=== PATIENT | male | born 1970 | race African-American/Black ===

== ENCOUNTER 2018-06-18 10:23 | Inpatient (IN) | payer OTHER ==
[2018-06-18 10:34] VITALS: BMI 26.4
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
[2018-06-18] MEDS ORDERED: MAGNESIUM HYDROX 2400MG/30ML ORAL SUSPENSION 30 ML CUP PO PRN (14:39)
[2018-06-18] MEDS ORDERED: P-EPHED 60MG/TRIPROLIDI 2.5MG TABLET PO PRN (14:39)
[2018-06-18] MEDS ORDERED: NICOTINE POLACRILEX 2 MG GUM BUC PRN (14:39)
[2018-06-18] MEDS ORDERED: hydrOXYzine PAMOATE 50 MG CAPSULE (FP) PO PRN (14:39)
[2018-06-18] MEDS ORDERED: MAG HYDROX/AL HYDROX/SIMETH 30 ML UNIT-DOSE CUP PO PRN (14:39)
[2018-06-18] MEDS ORDERED: MAGNESIUM CITRATE 300 ML BOTTLE PO PRN (14:39)
[2018-06-18] MEDS ORDERED: LOPERAMIDE HCL 2 MG CAPSULE PO PRN (14:39)
[2018-06-18] MEDS ORDERED: MENTHOL/PHENOL 1 EACH UD MM PRN (14:39)
[2018-06-18] MEDS ORDERED: guaiFENesin/D-METHORPHAN HB 10 ML UNIT-DOSE CUPS PO PRN (14:39)
[2018-06-18] MEDS ORDERED: ACETAMINOPHEN 325 MG TABLET (FP) PO PRN (14:39)
[2018-06-18] MEDS ORDERED: ALBUTEROL SO4 8 GM HFA INHALER IH PRN (14:41)
[2018-06-18] MEDS: NICOTINE 21 MG/24 HOURS TOPICAL PATCH TD SCH (16:44)
[2018-06-18] MEDS: THIAMINE HCL 100 MG TABLET (FP) PO SCH (21:36)
[2018-06-19] MEDS: NICOTINE 21 MG/24 HOURS TOPICAL PATCH TD SCH (10:21)
[2018-06-19] MEDS: PRENATAL VITAMINS W/ FOLIC ACID TABLET (FP) PO SCH (10:21)
[2018-06-19 10:26] LABS: ALK PHOS 73 U/L (45-117); ANION GAP 5 MMOL/L (8-16); BILIRUBIN,TOTAL 0.2 mg/dL (0.2-1); BLOOD UREA NITROGEN 22 mg/dL (7-18); CALCIUM 8.7 mg/dL (8.5-10.1); CHLORIDE 109 mmol/L (98-107); CO2 30 mmol/L (21-32); GLUCOSE,RANDOM 89 mg/dL (74-106); POTASSIUM 4.3 mmol/L (3.5-5.1); SGOT/AST 22 U/L (15-37); SGPT/ALT 35 U/L (13-61); SODIUM 143 mmol/L (136-145); TOT PROT 7.3 g/dl (6.4-8.2)
[2018-06-19 10:51] LABS: BASO % 1.1 % (0-2.0); EOS % 4.9 % (0-4.5); HEMATOCRIT 39.3 % (35.4-49); HEMOGLOBIN 13.3 GM/dL (11.7-16.9); LYMPH % 32.2 % (8-40); MCH 31.3 pg (25.7-33.7); MEAN CELL VOLUME 92.2 fl (80-96); MEAN PLT VOLUME 9.8 fl (7.5-11.1); MONO % 11.1 % (3.8-10.2); NEUT % 50.7 % (42.8-82.8); PLATELET COUNT 269 K/MM3 (134-434); RBC 4.26 M/mm3 (4.00-5.60); RDW 14.1 % (11.9-15.9); WHITE BLOOD COUNT 6.4 K/mm3 (4.0-10.0)
[2018-06-19 11:28] LABS: URINE APPEARANCE CLEAR; URINE BILIRUBIN NEGATIVE (<2.0 mg/dL); URINE COLOR LTYELLOW; URINE GLUCOSE (UA) NEGATIVE (NEGATIVE); URINE KETONE NEGATIVE (NEGATIVE); URINE LEUK ESTERASE TRACE (NEGATIVE); URINE NITRITE NEGATIVE (NEGATIVE); URINE PROTEIN NEGATIVE (NEGATIVE); URINE UROBILINOGEN NEGATIVE mg/dL (0.2-1.0)
[2018-06-19 11:31] LABS: URINE MUCUS RARE
[2018-06-19] MEDS ORDERED: PNEUMOCOCCAL 23 VACCINE 0.5 ML VIAL IM ONE (12:00)
[2018-06-19] MEDS ORDERED: FLU VACCINE QUAD 60 MCG/0.5 ML (MDV 18-19) IM ONE (12:00)
[2018-06-19] MEDS ORDERED: PNEUMOC 13-VAL CONJ-DIP CRM/PF 0.5 ML DISP.SYRIN IM ONE (12:00)
[2018-06-19] MEDS: THIAMINE HCL 100 MG TABLET (FP) PO SCH (21:46)
[2018-06-20] MEDS: PRENATAL VITAMINS W/ FOLIC ACID TABLET (FP) PO SCH (10:19)
[2018-06-20] MEDS: NICOTINE 21 MG/24 HOURS TOPICAL PATCH TD SCH (10:20)
[2018-06-20] MEDS: THIAMINE HCL 100 MG TABLET (FP) PO SCH (21:33)
[2018-06-21] MEDS: NICOTINE 21 MG/24 HOURS TOPICAL PATCH TD SCH (10:15)
[2018-06-21] MEDS: PRENATAL VITAMINS W/ FOLIC ACID TABLET (FP) PO SCH (10:15)
[2018-06-21] MEDS: IBUPROFEN 400 MG TABLET (FP) PO PRN ×2 (11:54→21:52)
[2018-06-21] MEDS: THIAMINE HCL 100 MG TABLET (FP) PO SCH (21:36)
[2018-06-22] MEDS: MELATONIN 5 MG TABLETS PO PRN ×2 (00:03→23:47)
[2018-06-22] MEDS: NICOTINE 21 MG/24 HOURS TOPICAL PATCH TD SCH (10:15)
[2018-06-22] MEDS: PRENATAL VITAMINS W/ FOLIC ACID TABLET (FP) PO SCH (10:16)
[2018-06-22] MEDS: IBUPROFEN 400 MG TABLET (FP) PO PRN (10:16)
[2018-06-22] MEDS: THIAMINE HCL 100 MG TABLET (FP) PO SCH (23:25)
[2018-06-23] MEDS: IBUPROFEN 400 MG TABLET (FP) PO PRN ×2 (06:32→16:40)
[2018-06-23] MEDS: PRENATAL VITAMINS W/ FOLIC ACID TABLET (FP) PO SCH (10:33)
[2018-06-23] MEDS: NICOTINE 21 MG/24 HOURS TOPICAL PATCH TD SCH (10:33)
[2018-06-23] MEDS: THIAMINE HCL 100 MG TABLET (FP) PO SCH (21:23)
[2018-06-23] MEDS: MELATONIN 5 MG TABLETS PO PRN (21:23)
[2018-06-24 06:56] VITALS: BP 126/94; PULSE 67; TEMP 98
--- NOTE | 2018-06-24 10:12 | PN ---
[facility] Progress Note Note: REHAB DISCHARGE NOTE; PT WAS ADMITTED TO REHAB ON 06/18/18 NEEDING REHAB FROM ALCOHOL,COCAINE AND K2. PT REPORTS HE WANTS TO SIGN OUT TO GET BACK TO WORK/HAS A LOT TO DO. REPORTS HE WANTS TO GO TO [facility] TO GET HIS BENEFIT CARD/PHONE AND REINSTATE. PT APPEARS IN A LIGHT TO LEAVE. PT WAS ENCOURAGE TO GIVE HIMSELF A CHANCE TO TREATMENT BUT DECLINED ALL EFFORTS PRESENTED. HOWEVER, PT IS ALERT O X 3. IN NO ACUTE DISTRESS. PT REPORTS HE HAS NO PCP AND ABOUT TO SET THAT UP AFTER LEAVING HERE. PT REPORTS HE IS GOING TO FOLLOW UP WITH CD AFTERCARE AT [facility]. SUGGESTED TO PT TO REGISTER HIMSELF IN ONE OF [facility] NEAR HIM FOR MEDICAL MANAGEMENT. PT MET WITH HER COUNSELOR, GIRISH MICHAEL. Vital Signs - 24 hr 06/24/18 06/24/18 06/24/18 00:30 03:30 06:55 Temperature 98.0 F Pulse Rate 67 Respiratory 18 18 18 Rate Blood Pressure 126/94 Laboratory Tests 06/18/18 06/19/18 06/19/18 22:30 06:00 06:00 WBC 6.4 RBC 4.26 Hgb 13.3 Hct 39.3 MCV 92.2 MCH 31.3 MCHC 34.0 RDW 14.1 Plt Count 269 MPV 9.8 Absolute Neuts (auto) 3.2 Neutrophils % 50.7 Lymphocytes % 32.2 Monocytes % 11.1 H Eosinophils % 4.9 H Basophils % 1.1 Nucleated RBC % 0 Sodium 143 Potassium 4.3 Chloride 109 H Carbon Dioxide 30 Anion Gap 5 L BUN 22 H Creatinine 1.0 Creat Clearance w eGFR > 60 Random Glucose 89 Calcium 8.7 Total Bilirubin 0.2 AST 22 ALT 35 Alkaline Phosphatase 73 Total Protein 7.3 Albumin 4.0 Urine Color Ltyellow Urine Appearance Clear Urine pH 7.0 Ur Specific [place] 1.025 Urine Protein Negative Urine Glucose (UA) Negative Urine Ketones Negative Urine Blood Negative Urine Nitrite Negative Urine Bilirubin Negative Urine Urobilinogen Negative Ur Leukocyte Esterase Trace Urine WBC (Auto) 10 Urine RBC (Auto) 4 Urine Mucus Rare RPR Titer Hep C Ab Diagnostic 06/19/18 06/19/18 06:00 06:00 WBC RBC Hgb Hct MCV MCH MCHC RDW Plt Count MPV Absolute Neuts (auto) Neutrophils % Lymphocytes % Monocytes % Eosinophils % Basophils % Nucleated RBC % Sodium Potassium Chloride Carbon Dioxide Anion Gap BUN Creatinine Creat Clearance w eGFR Random Glucose Calcium Total Bilirubin AST ALT Alkaline Phosphatase Total Protein Albumin Urine Color Urine Appearance Urine pH Ur Specific [place] Urine Protein Urine Glucose (UA) Urine Ketones Urine Blood Urine Nitrite Urine Bilirubin Urine Urobilinogen Ur Leukocyte Esterase Urine WBC (Auto) Urine RBC (Auto) Urine Mucus RPR Titer Nonreactive Hep C Ab Diagnostic <0.1 NAD MEDICALLY STABLE PLAN:PT SIGNED OUT AMA FOLLOW UP AT [facility] AFTER DISCHARGE.
[2018-06-24] MEDS: NICOTINE 21 MG/24 HOURS TOPICAL PATCH TD SCH (10:30)
[2018-06-24] MEDS: PRENATAL VITAMINS W/ FOLIC ACID TABLET (FP) PO SCH (10:30)
== END 2018-06-24 10:40 | disposition left against medical advice (07) | DRG 770 ==
LOC: YASAS 10:23 → Y5N 14:43
PROVIDERS: ADMIT Neuromusculoskeletal Medicine & OMM; ATTEND Neuromusculoskeletal Medicine & OMM
PROC: HZ42ZZZ Group Counseling for Substance Abuse Treatment, Cognitive-Behavioral (ICD-10-PCS; principal; 2018-06-18)
DX: F10.20 Alcohol dependence, uncomplicated (principal); F14.20 Cocaine dependence, uncomplicated; F12.20 Cannabis dependence, uncomplicated; F17.210 Nicotine dependence, cigarettes, uncomplicated; J45.909 Unspecified asthma, uncomplicated; B18.2 Chronic viral hepatitis C; Z87.438 Personal history of other diseases of male genital organs; Z91.013 Allergy to seafood
CPT/HCPCS: 36415; 80053; 81003; 81015; 85025; 86593; 86803; 90688; G0008

== ENCOUNTER 2018-08-27 08:31 | Inpatient (IN) | payer OTHER ==
[2018-08-27 09:20] VITALS: BMI 25.6
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
[2018-08-27] MEDS ORDERED: ACETAMINOPHEN 325 MG TABLET (FP) PO PRN ×2 (12:05)
[2018-08-27] MEDS ORDERED: NICOTINE POLACRILEX 2 MG GUM BUC PRN (12:05)
[2018-08-27] MEDS ORDERED: MAGNESIUM CITRATE 300 ML BOTTLE PO PRN (12:05)
[2018-08-27] MEDS ORDERED: hydrOXYzine PAMOATE 25 MG CAPSULE (FP) PO PRN (12:05)
[2018-08-27] MEDS ORDERED: BISMUTH SUBSALICYLATE 262 MG/15 ML BTL PO PRN (12:05)
[2018-08-27] MEDS ORDERED: MAG HYDROX/AL HYDROX/SIMETH 30 ML UNIT-DOSE CUP PO PRN (12:05)
[2018-08-27] MEDS ORDERED: IBUPROFEN 400 MG TABLET (FP) PO PRN (12:05)
[2018-08-27] MEDS ORDERED: chlordiazePOXIDE HCL 25 MG CAPSULE PO PRN (12:05)
[2018-08-27] MEDS ORDERED: METHOCARBAMOL 500 MG TABLET PO PRN (12:05)
[2018-08-27] MEDS ORDERED: MENTHOL/PHENOL 1 EACH UD MM PRN (12:05)
[2018-08-27] MEDS ORDERED: MAGNESIUM HYDROX 2400MG/30ML ORAL SUSPENSION 30 ML CUP PO PRN (12:05)
[2018-08-27] MEDS: NICOTINE 21 MG/24 HOURS TOPICAL PATCH TD SCH (13:05)
[2018-08-27 16:50] LABS: EPI CELLS 9.2 /HPF (0-5/HPF); PH,URINE 5.5 (5.0-8.0); URINE APPEARANCE CLEAR; URINE BACTERIA 1.5 /hpf (NEGATIVE); URINE BILIRUBIN NEGATIVE (NEGATIVE); URINE CASTS 33 /hpf (0-8); URINE COLOR YELLOW; URINE GLUCOSE (UA) NEGATIVE (NEGATIVE); URINE KETONE NEGATIVE (NEGATIVE); URINE LEUK ESTERASE 2+ (NEGATIVE); URINE NITRITE NEGATIVE (NEGATIVE); URINE PROTEIN NEGATIVE (NEGATIVE); URINE RBC 3 /hpf (0-4); URINE UROBILINOGEN 0.2 mg/dL (0.2-1.0); URINE WBC 62 /hpf (0-5)
[2018-08-27 17:06] LABS: HEMATOCRIT 41.1 % (35.4-49); HEMOGLOBIN 13.7 GM/dL (11.7-16.9); MCH 30.6 pg (25.7-33.7); MCHC 33.3 g/dl (32.0-35.9); MEAN CELL VOLUME 91.9 fl (80-96); MEAN PLT VOLUME 8.8 fl (7.5-11.1); PLATELET COUNT 363 K/MM3 (134-434); RBC 4.47 M/mm3 (4.00-5.60); RDW 14.4 % (11.9-15.9); WHITE BLOOD COUNT 4.8 K/mm3 (4.0-10.0)
[2018-08-27 17:14] LABS: ALBUMIN 3.5 g/dl (3.4-5.0); ALK PHOS 75 U/L (45-117); ANION GAP 4 MMOL/L (8-16); BILIRUBIN,TOTAL 0.3 mg/dL (0.2-1); BLOOD UREA NITROGEN 17 mg/dL (7-18); CHLORIDE 106 mmol/L (98-107); CO2 29 mmol/L (21-32); CREATININE 1.1 mg/dL (0.55-1.3); GLUCOSE,RANDOM 76 mg/dL (74-106); POTASSIUM 4.3 mmol/L (3.5-5.1); SGOT/AST 29 U/L (15-37); SGPT/ALT 39 U/L (13-61); SODIUM 139 mmol/L (136-145); TOT PROT 7.6 g/dl (6.4-8.2)
[2018-08-27] MEDS: chlordiazePOXIDE HCL 25 MG CAPSULE PO SCH ×2 (17:51→22:17)
[2018-08-27] MEDS: THIAMINE HCL 100 MG TABLET (FP) PO SCH (22:17)
[2018-08-27] MEDS: MELATONIN 5 MG TABLETS PO PRN (22:18)
[2018-08-28] MEDS: chlordiazePOXIDE HCL 25 MG CAPSULE PO SCH ×4 (05:37→22:44)
[2018-08-28] MEDS: NICOTINE 21 MG/24 HOURS TOPICAL PATCH TD SCH (10:20)
[2018-08-28] MEDS: PRENATAL VITAMINS W/ FOLIC ACID TABLET (FP) PO SCH (10:20)
[2018-08-28] MEDS ORDERED: PT OWN MED DRAWER 7, Y5N ONE (10:39)
[2018-08-28] MEDS: LIDOCAINE 5% TOPICAL PATCH TP SCH (16:03)
--- NOTE | 2018-08-28 17:19 | PN ---
S CIWA - CIWA Score Nausea/Vomitin-No Nausea/No Vomiting Muscle Tremors: None Anxiety: 3 Agitation: 1-Slight > Activity Paroxysmal Sweats: 2 Orientation: 0-Oriented Tacttile Disturbances: 2-Mild Itch/Numbness/Burn Auditory Disturbances: 1-Very Mild Visual Disturbances: 3-Moderate Sensitivity Headache: 0-None Present CIWA-Ar Total Score: 12 [facility] Progress Note (SOAP) Subjective: Body Aches, Anxious, Sweating. Objective: PATIENT A & O X 2 (UNCERTAIN ABOUT CURRENT DAY / DATE). PATIENT OBSERVED AMBULATING ON UNIT. IN NO ACUTE DISTRESS. 08/28/18 17:17 Vital Signs Temperature 97.5 F L 08/28/18 13:23 Pulse Rate 96 H 08/28/18 13:23 Respiratory Rate 18 08/28/18 13:23 Blood Pressure 137/86 08/28/18 13:23 O2 Sat by Pulse Oximetry (%) Laboratory Tests 08/27/18 08/27/18 08/27/18 12:10 12:10 12:10 WBC 4.8 RBC 4.47 Hgb 13.7 Hct 41.1 MCV 91.9 MCH 30.6 MCHC 33.3 RDW 14.4 Plt Count 363 D MPV 8.8 D Sodium 139 Potassium 4.3 Chloride 106 Carbon Dioxide 29 Anion Gap 4 L BUN 17 Creatinine 1.1 Creat Clearance w eGFR 72.39 Random Glucose 76 Calcium 9.0 Total Bilirubin 0.3 AST 29 ALT 39 Alkaline Phosphatase 75 Total Protein 7.6 Albumin 3.5 Urine Color Urine Appearance Urine pH Ur Specific [place] Urine Protein Urine Glucose (UA) Urine Ketones Urine Blood Urine Nitrite Urine Bilirubin Urine Urobilinogen Ur Leukocyte Esterase Urine WBC (Auto) Urine RBC (Auto) Urine Casts (Auto) U Epithel Cells (Auto) U Sm Round Cell (Auto) Urine Bacteria (Auto) RPR Titer Nonreactive 08/27/18 15:17 WBC RBC Hgb Hct MCV MCH MCHC RDW Plt Count MPV Sodium Potassium Chloride Carbon Dioxide Anion Gap BUN Creatinine Creat Clearance w eGFR Random Glucose Calcium Total Bilirubin AST ALT Alkaline Phosphatase Total Protein Albumin Urine Color Yellow Urine Appearance Clear Urine pH 5.5 D Ur Specific [place] 1.028 Urine Protein Negative Urine Glucose (UA) Negative Urine Ketones Negative Urine Blood Negative Urine Nitrite Negative Urine Bilirubin Negative Urine Urobilinogen 0.2 Ur Leukocyte Esterase 2+ H Urine WBC (Auto) 62 Urine RBC (Auto) 3 Urine Casts (Auto) 33 U Epithel Cells (Auto) 9.2 U Sm Round Cell (Auto) None seen Urine Bacteria (Auto) 1.5 RPR Titer LABS NOTED. NO URINARY COMPLAINTS (BURNING, PAIN, FREQUENCY, URGENCY, HESITANCY) OFFERED BY PATIENT DURING TODAY'S ROUNDS ASSESSMENT. 08/28/18 17:19 Assessment: 08/28/18 17:17 WITHDRAWAL SYMPTOMS. Plan: CONTINUE DETOX. INCREASE DAILY PO FLUID INTAKE.
[2018-08-28] MEDS ORDERED: LIDOCAINE PATCH REMOVAL MC SCH (22:00)
[2018-08-28] MEDS: MELATONIN 5 MG TABLETS PO PRN (22:04)
[2018-08-28] MEDS: THIAMINE HCL 100 MG TABLET (FP) PO SCH (22:04)
[2018-08-28 23:38] LABS: EPI CELLS 1.7 /HPF (0-5/HPF); PH,URINE 6.5 (5.0-8.0); URINE APPEARANCE CLEAR; URINE BACTERIA 1.4 /hpf (NEGATIVE); URINE BILIRUBIN NEGATIVE (NEGATIVE); URINE CASTS 9 /hpf (0-8); URINE COLOR YELLOW; URINE GLUCOSE (UA) NEGATIVE (NEGATIVE); URINE KETONE NEGATIVE (NEGATIVE); URINE LEUK ESTERASE 1+ (NEGATIVE); URINE NITRITE NEGATIVE (NEGATIVE); URINE PROTEIN NEGATIVE (NEGATIVE); URINE RBC 1 /hpf (0-4); URINE WBC 4 /hpf (0-5)
[2018-08-29] MEDS: chlordiazePOXIDE HCL 25 MG CAPSULE PO SCH ×2 (05:27→10:06)
[2018-08-29 09:30] VITALS: BP 144/84; PULSE 69; TEMP 97.1
[2018-08-29] MEDS: PRENATAL VITAMINS W/ FOLIC ACID TABLET (FP) PO SCH (10:06)
[2018-08-29] MEDS: NICOTINE 21 MG/24 HOURS TOPICAL PATCH TD SCH (10:06)
[2018-08-29] MEDS: LIDOCAINE 5% TOPICAL PATCH TP SCH (10:06)
--- NOTE | 2018-08-29 12:28 | PN ---
S CIWA - CIWA Score Nausea/Vomitin-No Nausea/No Vomiting Muscle Tremors: None Anxiety: 2 Agitation: 1-Slight > Activity Paroxysmal Sweats: 2 Orientation: 0-Oriented Tacttile Disturbances: 2-Mild Itch/Numbness/Burn Auditory Disturbances: 0-None Visual Disturbances: 0-None Headache: 0-None Present CIWA-Ar Total Score: 7 [facility]HS Progress Note (SOAP) Subjective: Sweating, Body Aches (Patient reports that primary area of discomfort is Right Knee; however, he reports history of chronic injury in that area). Patient reports that withdrawal symptoms in general are minimal in degree and are tolerable at this time. Objective: PATIENT A & O X 3, OBSERVED AMBULATING ON UNIT. IN NO ACUTE DISTRESS. PATIENT DENIES ANY UNUSUAL URINARY COMPLAINTS (BURNING, PAIN, FREQUENCY, URGENCY , HESITANCY). 08/29/18 12:28 Vital Signs Temperature 97.1 F L 08/29/18 09:29 Pulse Rate 69 08/29/18 09:29 Respiratory Rate 18 08/29/18 09:29 Blood Pressure 144/84 08/29/18 09:29 O2 Sat by Pulse Oximetry (%) Laboratory Tests 08/27/18 08/27/18 08/27/18 12:10 12:10 12:10 WBC 4.8 RBC 4.47 Hgb 13.7 Hct 41.1 MCV 91.9 MCH 30.6 MCHC 33.3 RDW 14.4 Plt Count 363 D MPV 8.8 D Sodium 139 Potassium 4.3 Chloride 106 Carbon Dioxide 29 Anion Gap 4 L BUN 17 Creatinine 1.1 Creat Clearance w eGFR 72.39 Random Glucose 76 Calcium 9.0 Total Bilirubin 0.3 AST 29 ALT 39 Alkaline Phosphatase 75 Total Protein 7.6 Albumin 3.5 Urine Color Urine Appearance Urine pH Ur Specific [place] Urine Protein Urine Glucose (UA) Urine Ketones Urine Blood Urine Nitrite Urine Bilirubin Urine Urobilinogen Ur Leukocyte Esterase Urine WBC (Auto) Urine RBC (Auto) Urine Casts (Auto) U Epithel Cells (Auto) U Sm Round Cell (Auto) Urine Bacteria (Auto) RPR Titer Nonreactive 08/27/18 08/28/18 15:17 17:55 WBC RBC Hgb Hct MCV MCH MCHC RDW Plt Count MPV Sodium Potassium Chloride Carbon Dioxide Anion Gap BUN Creatinine Creat Clearance w eGFR Random Glucose Calcium Total Bilirubin AST ALT Alkaline Phosphatase Total Protein Albumin Urine Color Yellow Yellow Urine Appearance Clear Clear Urine pH 5.5 D 6.5 Ur Specific [place] 1.028 1.020 Urine Protein Negative Negative Urine Glucose (UA) Negative Negative Urine Ketones Negative Negative Urine Blood Negative Negative Urine Nitrite Negative Negative Urine Bilirubin Negative Negative Urine Urobilinogen 0.2 1.0 Ur Leukocyte Esterase 2+ H 1+ H Urine WBC (Auto) 62 4 Urine RBC (Auto) 3 1 Urine Casts (Auto) 33 9 U Epithel Cells (Auto) 9.2 1.7 U Sm Round Cell (Auto) None seen Urine Bacteria (Auto) 1.5 1.4 RPR Titer LABS NOTED. RESULTS OF REPEAT UA NOTED. 08/29/18 12:28 Assessment: 08/29/18 12:28 COMPLETION OF DETOX REGIMEN. Plan: SINCE PATIENT REPORTS THAT CURRENT WITHDRAWAL / DETOX SYMPTOMS MINIMAL IN DEGREE AND THAT HE FEELS WELL OVERALL, AT PATIENT'S REQUEST, HE WAS GRANTED AN EARLY DISCHARGE FROM DETOX UNIT.
--- NOTE | 2018-08-29 12:38 | DS ---
[facility] Detox Discharge Summary Admission Date: 08/27/18 Discharge Date: 08/29/18 - History Present History: Alcohol Dependence, Cannabis Dependence, Cocaine Dependence Additional Comments: PATIENT REPORTS THAT CURRENT WITHDRAWAL / DETOX SYMPTOMS ARE MINIMAL IN DEGREE AND THAT HE FEELS WELL OVERALL AT TIME OF DISCHARGE FROM DETOX UNIT. PATIENT RETURNING HOME AND TO WORK. PATIENT REFERRED TO [facility] ([place], [place]) FOR AFTERCARE. PATIENT WILL CONSIDER POSSIBLE REHAB ADMISSION FOR LATER DATE. PATIENT WAS DISCHARGED FROM DETOX UNIT IN STABLE MEDICAL CONDITION. Pertinent Past History: Asthma, Hep C, Nicotine Dependence, Weight Loss. - Physical Exam Results Vital Signs: Vital Signs Temperature 97.1 F L 08/29/18 09:29 Pulse Rate 69 08/29/18 09:29 Respiratory Rate 18 08/29/18 09:29 Blood Pressure 144/84 08/29/18 09:29 O2 Sat by Pulse Oximetry (%) Pertinent Admission Physical Exam Findings: WITHDRAWAL SYMPTOMS. Laboratory Tests 08/27/18 08/27/18 08/27/18 12:10 12:10 12:10 WBC 4.8 RBC 4.47 Hgb 13.7 Hct 41.1 MCV 91.9 MCH 30.6 MCHC 33.3 RDW 14.4 Plt Count 363 D MPV 8.8 D Sodium 139 Potassium 4.3 Chloride 106 Carbon Dioxide 29 Anion Gap 4 L BUN 17 Creatinine 1.1 Creat Clearance w eGFR 72.39 Random Glucose 76 Calcium 9.0 Total Bilirubin 0.3 AST 29 ALT 39 Alkaline Phosphatase 75 Total Protein 7.6 Albumin 3.5 Urine Color Urine Appearance Urine pH Ur Specific [place] Urine Protein Urine Glucose (UA) Urine Ketones Urine Blood Urine Nitrite Urine Bilirubin Urine Urobilinogen Ur Leukocyte Esterase Urine WBC (Auto) Urine RBC (Auto) Urine Casts (Auto) U Epithel Cells (Auto) U Sm Round Cell (Auto) Urine Bacteria (Auto) RPR Titer Nonreactive 08/27/18 08/28/18 15:17 17:55 WBC RBC Hgb Hct MCV MCH MCHC RDW Plt Count MPV Sodium Potassium Chloride Carbon Dioxide Anion Gap BUN Creatinine Creat Clearance w eGFR Random Glucose Calcium Total Bilirubin AST ALT Alkaline Phosphatase Total Protein Albumin Urine Color Yellow Yellow Urine Appearance Clear Clear Urine pH 5.5 D 6.5 Ur Specific [place] 1.028 1.020 Urine Protein Negative Negative Urine Glucose (UA) Negative Negative Urine Ketones Negative Negative Urine Blood Negative Negative Urine Nitrite Negative Negative Urine Bilirubin Negative Negative Urine Urobilinogen 0.2 1.0 Ur Leukocyte Esterase 2+ H 1+ H Urine WBC (Auto) 62 4 Urine RBC (Auto) 3 1 Urine Casts (Auto) 33 9 U Epithel Cells (Auto) 9.2 1.7 U Sm Round Cell (Auto) None seen Urine Bacteria (Auto) 1.5 1.4 RPR Titer LABS NOTED. - Treatment Hospital Course: Detox Protocol Followed, Detoxed Safely, Responded well, Discharged Condition Good Patient has Accepted a Rehab Referral to: PT. REFERRED TO [facility] ([place], [place]); WILL CONSIDER REHAB LATER. - Medication Discharge Medications: Ambulatory Orders NK [No Known Home Medication] 08/27/18 - Diagnosis (1) Alcohol dependence with uncomplicated withdrawal Current Visit: Yes Status: Acute (2) Weight loss Current Visit: Yes Status: Acute (3) Asthma Current Visit: No Status: Acute Qualifiers: Asthma severity: unspecified severity Asthma persistence: unspecified Asthma complication type: uncomplicated Qualified Code(s): J45.909 - Unspecified asthma, uncomplicated (4) Cannabis dependence Current Visit: No Status: Acute (5) Cocaine dependence Current Visit: Yes Status: Acute Qualifiers: Substance use status: uncomplicated Qualified Code(s): F14.20 - Cocaine dependence, uncomplicated (6) Nicotine dependence Current Visit: Yes Status: Acute Qualifiers: Nicotine product type: cigarettes Substance use status: uncomplicated Qualified Code(s): F17.210 - Nicotine dependence, cigarettes, uncomplicated - AMA Did Patient Leave Against Medical Advice: No
[2018-08-29] MEDS ORDERED: chlordiazePOXIDE HCL 10 MG CAPSULE PO PRN (17:00)
[2018-08-29] MEDS ORDERED: chlordiazePOXIDE HCL 10 MG CAPSULE PO SCH (17:00)
[2018-08-30] MEDS ORDERED: chlordiazePOXIDE HCL 10 MG CAPSULE PO SCH (17:00)
== END 2018-08-29 12:25 | disposition home or self-care (01) | DRG 774 ==
LOC: YASAS 08:31 → Y3N 12:26
PROVIDERS: ADMIT Surgery; ATTEND Surgery
PROC: HZ2ZZZZ Detoxification Services for Substance Abuse Treatment (ICD-10-PCS; principal; 2018-08-27)
DX: F10.230 Alcohol dependence with withdrawal, uncomplicated (principal); F14.20 Cocaine dependence, uncomplicated; F12.20 Cannabis dependence, uncomplicated; F17.210 Nicotine dependence, cigarettes, uncomplicated; J45.909 Unspecified asthma, uncomplicated; R63.4 Abnormal weight loss; Z87.438 Personal history of other diseases of male genital organs; Z91.013 Allergy to seafood; Z59.0 Homelessness
CPT/HCPCS: 36415; 80053; 81003; 85027; 86593

== ENCOUNTER 2018-10-23 08:38 | Inpatient (IN) | payer OTHER ==
[2018-10-23 09:35] VITALS: BMI 25.8
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
[2018-10-23] MEDS ORDERED: MAGNESIUM CITRATE 300 ML BOTTLE PO PRN (10:39)
[2018-10-23] MEDS ORDERED: MAGNESIUM HYDROX 2400MG/30ML ORAL SUSPENSION 30 ML CUP PO PRN (10:39)
[2018-10-23] MEDS ORDERED: METHOCARBAMOL 500 MG TABLET PO PRN (10:39)
[2018-10-23] MEDS ORDERED: MAG HYDROX/AL HYDROX/SIMETH 30 ML UNIT-DOSE CUP PO PRN (10:39)
[2018-10-23] MEDS ORDERED: diazePAM 5 MG TABLET PO PRN (10:39)
[2018-10-23] MEDS ORDERED: BISMUTH SUBSALICYLATE 524 MG/30 ML UD PO PRN (10:39)
[2018-10-23] MEDS ORDERED: IBUPROFEN 400 MG TABLET (FP) PO PRN (10:39)
[2018-10-23] MEDS ORDERED: NICOTINE POLACRILEX 2 MG GUM BUC PRN (10:39)
[2018-10-23] MEDS ORDERED: ACETAMINOPHEN 325 MG TABLET (FP) PO PRN ×2 (10:39)
[2018-10-23] MEDS ORDERED: hydrOXYzine PAMOATE 25 MG CAPSULE (FP) PO PRN (10:39)
[2018-10-23] MEDS ORDERED: MENTHOL/PHENOL 1 EACH UD MM PRN (10:39)
[2018-10-23] MEDS ORDERED: MELATONIN 5 MG TABLETS PO PRN (10:39)
[2018-10-23] MEDS: diazePAM 5 MG TABLET PO SCH ×2 (14:10→21:47)
[2018-10-23] MEDS: THIAMINE HCL 100 MG TABLET (FP) PO SCH (21:47)
[2018-10-24] MEDS: diazePAM 5 MG TABLET PO SCH ×3 (06:14→22:34)
[2018-10-24] MEDS: PRENATAL VITAMINS W/ FOLIC ACID TABLET (FP) PO SCH (10:20)
[2018-10-24 10:47] LABS: ALBUMIN 3.6 g/dl (3.4-5.0); BILIRUBIN,TOTAL 0.5 mg/dL (0.2-1); BLOOD UREA NITROGEN 13.7 mg/dL (7-18); CALCIUM 8.8 mg/dL (8.5-10.1); CREATININE 1.2 mg/dL (0.55-1.3); POTASSIUM 4.3 mmol/L (3.5-5.1); TOT PROT 6.9 g/dl (6.4-8.2)
[2018-10-24 11:57] LABS: HEMATOCRIT 44.7 % (35.4-49); HEMOGLOBIN 14.8 GM/dL (11.7-16.9); MCH 30.4 pg (25.7-33.7); MCHC 33.1 g/dl (32.0-35.9); MEAN CELL VOLUME 91.8 fl (80-96); MEAN PLT VOLUME 9.4 fl (7.5-11.1); RBC 4.87 M/mm3 (4.00-5.60); RDW 14.6 % (11.9-15.9); WHITE BLOOD COUNT 4.8 K/mm3 (4.0-10.0)
--- NOTE | 2018-10-24 12:23 | PN ---
S CIWA - CIWA Score Nausea/Vomitin-No Nausea/No Vomiting Muscle Tremors: 2 Anxiety: 2 Agitation: 2 Paroxysmal Sweats: 2 Orientation: 0-Oriented Tacttile Disturbances: 0-None Auditory Disturbances: 0-None Visual Disturbances: 0-None Headache: 2-Mild CIWA-Ar Total Score: 10 S Progress Note (SOAP) Subjective: c/o sweats, headache, anxiety, and shakes. Objective: 10/24/18 12:23 Vital Signs 10/24/18 10/24/18 06:16 09:40 Temperature 97 F L 98.6 F Pulse Rate 53 L 64 Respiratory 18 20 Rate Blood Pressure 139/84 132/73 Lab Results WBC 4.8 K/mm3 (4.0-10.0) 10/24/18 08:00 RBC 4.87 M/mm3 (4.00-5.60) 10/24/18 08:00 Hgb 14.8 GM/dL (11.7-16.9) 10/24/18 08:00 Hct 44.7 % (35.4-49) 10/24/18 08:00 MCV 91.8 fl (80-96) 10/24/18 08:00 MCHC 33.1 g/dl (32.0-35.9) 10/24/18 08:00 RDW 14.6 % (11.9-15.9) 10/24/18 08:00 Sodium 138 mmol/L (136-145) 10/24/18 08:00 Potassium 4.3 mmol/L (3.5-5.1) 10/24/18 08:00 Chloride 106 mmol/L (98-107) 10/24/18 08:00 Carbon Dioxide 25 mmol/L (21-32) 10/24/18 08:00 Anion Gap 7 MMOL/L (8-16) L 10/24/18 08:00 BUN 13.7 mg/dL (7-18) 10/24/18 08:00 Creatinine 1.2 mg/dL (0.55-1.3) 10/24/18 08:00 Random Glucose 82 mg/dL (74-106) 10/24/18 08:00 Calcium 8.8 mg/dL (8.5-10.1) 10/24/18 08:00 Labs noted. Assessment: 10/24/18 12:23 AOX3, in no respiratory distress, full rom, ambulating in the unit. Withdrawal symptoms. Plan: continue detox increase fluids
[2018-10-24 19:31] LABS: PLATELET COUNT 293 K/MM3 (134-434)
[2018-10-24] MEDS: THIAMINE HCL 100 MG TABLET (FP) PO SCH (22:34)
[2018-10-25] MEDS ORDERED: diazePAM 5 MG TABLET PO ONE (06:00)
[2018-10-25 09:18] VITALS: BP 149/91; PULSE 50; TEMP 97.1
[2018-10-25] MEDS: PRENATAL VITAMINS W/ FOLIC ACID TABLET (FP) PO SCH (10:16)
--- NOTE | 2018-10-25 13:33 | DS ---
[facility] Detox Discharge Summary Admission Date: 10/23/18 Discharge Date: 10/25/18 - History Present History: Alcohol Dependence Additional Comments: 47 years old male admitted on 10/23/18 for alcohol withdrawal stabilization feeling better today had last dose of valium 5 mg earlier today preferring to go home today and begin alcohol rehab tomorrow at [facility] out patient facility "I need to go back to work" patient is alert no acute distress denies suicidal ideation Pertinent Past History: encourage bring in medication list and lab report to aftercare appointment - Physical Exam Results Vital Signs: Vital Signs Temperature 97.1 F L 10/25/18 09:17 Pulse Rate 50 L 10/25/18 09:17 Respiratory Rate 20 10/25/18 09:17 Blood Pressure 149/91 10/25/18 09:17 O2 Sat by Pulse Oximetry (%) Pertinent Admission Physical Exam Findings: alcohol withdrawal sx Laboratory Last Values WBC 4.8 K/mm3 (4.0-10.0) 10/24/18 08:00 RBC 4.87 M/mm3 (4.00-5.60) 10/24/18 08:00 Hgb 14.8 GM/dL (11.7-16.9) 10/24/18 08:00 Hct 44.7 % (35.4-49) 10/24/18 08:00 MCV 91.8 fl (80-96) 10/24/18 08:00 MCH 30.4 pg (25.7-33.7) 10/24/18 08:00 MCHC 33.1 g/dl (32.0-35.9) 10/24/18 08:00 RDW 14.6 % (11.9-15.9) 10/24/18 08:00 Plt Count 293 K/MM3 (134-434) 10/24/18 08:00 MPV 9.4 fl (7.5-11.1) 10/24/18 08:00 Sodium 138 mmol/L (136-145) 10/24/18 08:00 Potassium 4.3 mmol/L (3.5-5.1) 10/24/18 08:00 Chloride 106 mmol/L (98-107) 10/24/18 08:00 Carbon Dioxide 25 mmol/L (21-32) 10/24/18 08:00 Anion Gap 7 MMOL/L (8-16) L 10/24/18 08:00 BUN 13.7 mg/dL (7-18) 10/24/18 08:00 Creatinine 1.2 mg/dL (0.55-1.3) 10/24/18 08:00 Est GFR (CKD-EPI)AfAm 84.13 10/24/18 08:00 Est GFR (CKD-EPI)NonAf 72.59 10/24/18 08:00 Random Glucose 82 mg/dL (74-106) 10/24/18 08:00 Calcium 8.8 mg/dL (8.5-10.1) 10/24/18 08:00 Total Bilirubin 0.5 mg/dL (0.2-1) 10/24/18 08:00 AST 36 U/L (15-37) 10/24/18 08:00 ALT 73 U/L (13-61) H 10/24/18 08:00 Alkaline Phosphatase 70 U/L (45-117) 10/24/18 08:00 Total Protein 6.9 g/dl (6.4-8.2) 10/24/18 08:00 Albumin 3.6 g/dl (3.4-5.0) 10/24/18 08:00 RPR Titer Nonreactive (NONREACTIVE) 10/24/18 08:00 lab noted - Treatment Hospital Course: Detox Protocol Followed, Detoxed Safely, Responded well, Discharged Condition Good, Rehab Referral Accepted Patient has Accepted a Rehab Referral to: [facility] out patient - Medication Discharge Medications: Ambulatory Orders NK [No Known Home Medication] 08/27/18 - Diagnosis (1) Alcohol dependence with uncomplicated withdrawal Current Visit: Yes Status: Acute (2) Nicotine dependence Current Visit: Yes Status: Acute Qualifiers: Nicotine product type: cigarettes Substance use status: in withdrawal Qualified Code(s): F17.213 - Nicotine dependence, cigarettes, with withdrawal (3) Asthma Current Visit: Yes Status: Chronic Qualifiers: Asthma severity: mild Asthma persistence: intermittent Asthma complication type: uncomplicated Qualified Code(s): J45.20 - Mild intermittent asthma, uncomplicated - AMA Did Patient Leave Against Medical Advice: No
== END 2018-10-25 10:30 | disposition home or self-care (01) | DRG 774 ==
LOC: YASAS 08:38 → Y3N 11:03
PROVIDERS: ADMIT Surgery; ATTEND Surgery
PROC: HZ2ZZZZ Detoxification Services for Substance Abuse Treatment (ICD-10-PCS; principal; 2018-10-23)
DX: F10.230 Alcohol dependence with withdrawal, uncomplicated (principal); F14.20 Cocaine dependence, uncomplicated; F12.20 Cannabis dependence, uncomplicated; F17.213 Nicotine dependence, cigarettes, with withdrawal; J45.20 Mild intermittent asthma, uncomplicated; B18.2 Chronic viral hepatitis C; Z86.19 Personal history of other infectious and parasitic diseases; Z59.0 Homelessness
CPT/HCPCS: 36415; 80053; 85027; 86593